=== PATIENT | female | born 1975 | race Hispanic/Latino ===

== ENCOUNTER 2025-01-04 08:56 | Emergency (ER) | payer OTHER ==
[2025-01-04 09:42] LABS: Actual Bicarbonate (HCO3v) 19.7 mEq/L (22-28); Analyzer IN Cardio CS ER; Base Excess -1.8 mEq/L (-2 - +2); Calcium, Ionized (venous) 1.13 mmol/L (1.16-1.32); Chloride (VBG) 103 mmol/L (98-106); Critical Notified Whom: ferme; Hematocrit-VBG 38 % (36.0-47.0); Hemoglobin (Hb) 13.0 g/dL (11.7-16.0); Potassium (VBG) 3.86 mmol/L (3.70-5.30); Puncture Site Other Site; RapidComm Collect By LAB; Sodium 137 mmol/L (133-146)
[2025-01-04 09:46] LABS: #Basophils 0.03 10x3/uL (0.0-0.2); #Eosinophils 0.16 10x3/uL (0.0-0.5); #Monocytes 0.75 10x3/uL (0.0-1.1); #Neutrophils 6.05 10x3/uL (1.5-8.4); %Basophils 0.3 % (0.0-2.0); %Eosinophils 1.7 % (0.0-6.0); %Lymphocytes 24.4 % (18.0-47.0); %Monocytes 8.1 % (0.0-10.0); %Neutrophils 65.1 % (40.0-75.0); Hematocrit 37.9 % (34.9-44.5); Hemoglobin 12.2 g/dL (12.0-15.5); Mean Corpuscular Hemoglobin 25.7 pg (27.0-33.0); Mean Corpuscular Volume 79.8 fL (81.6-98.3); Platelet Count 417 10x3/uL (150-450); Red Blood Cell (RBC) Count 4.75 10x6/uL (3.90-5.03); White Blood Cell (WBC) Count 9.30 10x3/uL (3.5-10.5)
[2025-01-04] MEDS ORDERED: Droperidol 5 MG/2 ML VIAL ONE (09:54)
[2025-01-04 10:13] LABS: ALT (SGPT) 12 U/L (Less than 34); AST (SGOT) 17 U/L (11-34); Albumin 3.9 g/dL (3.1-4.5); Alkaline Phosphatase 119 U/L (40-110); Anion Gap 14 mmol/L (10-20); BUN (Urea Nitrogen) 8 mg/dL (7.0-18.7); Bilirubin, Total 1.0 mg/dL (0.3-1.2); Calc. Creatinine Clearance 0 mL/min (70-130); Calcium 9.1 mg/dL (7.8-10.44); Carbon Dioxide 19 mmol/L (22-29); Chloride 105 mmol/L (98-107); Globulin 4.1 g/dL (2.4-3.5); Glucose 134 mg/dL (70-105); Potassium 4.2 mmol/L (3.5-5.1); Sodium 134 mmol/L (136-145)
[2025-01-04 10:19] LABS: Troponin I Less than 0.010 ng/mL (< 0.028)
== END 2025-01-04 11:45 ==
LOC: CSHERS 08:56
DX: R51.9 Headache, unspecified (principal); R20.2 Paresthesia of skin; R06.4 Hyperventilation; I10 Essential (primary) hypertension
CPT/HCPCS: 36415; 36416; 70450; 71045; 80053; 82805; 83880; 84443; 84484; 85025; 85379; 93005; 96374; J1790